=== PATIENT | male | born 1985 | race American Indian/Alaskan Native ===

== ENCOUNTER 2016-09-01 18:35 | Emergency (ER) | payer SELFPAY ==
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
[2016-09-02] MEDS ORDERED: NORCO 5/325 PO ONE (01:04)
[2016-09-02] MEDS ORDERED: FLEXERIL PO ONE (01:04)
[2016-09-02 01:37] VITALS: BP 135/87
== END 2016-09-02 01:35 | disposition home or self-care (01) ==
LOC: ED 18:35
DX: S30.0XXA Contusion of lower back and pelvis, initial encounter (principal); F17.200 Nicotine dependence, unspecified, uncomplicated; W17.89XA Other fall from one level to another, initial encounter; Y93.89 Activity, other specified; Y99.8 Other external cause status; Y92.89 Other specified places as the place of occurrence of the external cause
CPT/HCPCS: 99282

== ENCOUNTER 2017-01-21 19:24 | Emergency (ER) | payer OTHER ==
[2017-01-21] MEDS ORDERED: ALUM-MAG HYDROX-SIMETH 200-200-20MG/5ML PO ONE (20:40)
[2017-01-21] MEDS ORDERED: LIDOCAINE VISCOUS 2% PO ONE (20:40)
[2017-01-21 20:58] LABS: Bilirubin,Urine NEG (Negative); Blood,Urine NEG (Negative); Ketones,Urine TR mg/dL (Negative); Leukocyte Esterase,Urine NEG (Negative); Mucus,Urine FEW /HPF; Nitrite,Urine NEG (Negative); Protein,Urine <15 mg/dL mg/dL (Negative); Urobilinogen,Urine < 2.0 mg/dL (<2.0)
[2017-01-21 21:04] LABS: Basophils % (Auto) 0.7 % (0.0-1.8); Eosinophils % (Auto) 0.2 % (0.0-4.3); Hematocrit 46.8 % (35.5-45.6); Hemoglobin 16.2 gm/dl (11.8-15.2); Mean Corpuscular HGB Conc 35 % (32-34); Mean Corpuscular Hemoglobin 32 pg (28-32); Mean Corpuscular Volume 92 fl (84-94); Platelet Count 243 K/mm3 (140-440); Red Blood Count 5.07 M/mm3 (3.65-5.03); Red Cell Distribution Width 13.1 % (13.2-15.2); White Blood Count 13.8 K/mm3 (4.5-11.0)
[2017-01-21 21:24] LABS: Alanine Aminotransferase 26 units/L (7-56); Albumin 4.6 g/dL (3.9-5); Albumin/Globulin Ratio 1.6 %; Alkaline Phosphatase 104 units/L (35-129); Anion Gap 18 mmol/L; BUN/Creatinine Ratio 11; Blood Urea Nitrogen 8 mg/dL (9-20); Calcium 9.1 mg/dL (8.4-10.2); Carbon Dioxide 28 mmol/L (22-30); Chloride 92.1 mmol/L (98-107); Glucose 80 mg/dL (75-100); Lipase 17 units/L (13-60); Potassium 3.8 mmol/L (3.6-5.0); Sodium 134 mmol/L (137-145); Total Protein 7.4 g/dL (6.3-8.2)
[2017-01-21 21:37] LABS: Bilirubin,Direct < 0.2 mg/dL (0-0.2); Bilirubin,Indirect 0.2 mg/dL
--- NOTE | 2017-01-21 21:49 | Emergency Department Report ---
HPI - General Chief Complaint: Abdominal Pain Time Seen by Provider: 01/21/17 20:30 - HPI HPI: This is a 32-year-old male presents to the emergency department with a complaint of upper abdominal pain, nausea and vomiting that has been going on pretty consistently for the past month but has been an issue for him off and on over the past few years. He had 2 episodes of seeing some blood within the emesis. He has been taking some Zantac for his symptoms without any relief. He has a tobacco smoker. He has a history of some chronic back pain from an injury he had a year or so ago. He does not currently have a primary care physician. No recent travel or sick contacts at home. ED Past Medical Hx - Past Medical History Previous Medical History?: No Additional medical history: Back Injury April 2015 - Surgical History Additional Surgical History: tonsils removed. Left Arm/elbow - Social History Smoking Status: Current Every Day Smoker Substance Use Type: Alcohol - Medications Home Medications: Home Medications Medication Instructions Recorded Confirmed Last Taken Type Acetaminophen/Codeine [Tylenol 1 tab PO Q6H PRN #12 tab 09/02/16 Unknown Rx /Codeine # 3 tab] Cyclobenzaprine [Flexeril] 10 mg PO TID PRN #15 tablet 09/02/16 Unknown Rx Ibuprofen [Motrin] 600 mg PO Q8H PRN #15 tablet 09/02/16 Unknown Rx ED Review of Systems ROS: Stated complaint: STOMACH/CHEST PAIN Other details as noted in HPI Comment: All other systems reviewed and negative Constitutional: denies: chills, fever Eyes: denies: eye pain, eye discharge, vision change ENT: denies: ear pain, throat pain Respiratory: denies: cough, shortness of breath, wheezing Cardiovascular: denies: chest pain, palpitations Gastrointestinal: abdominal pain, nausea, vomiting Genitourinary: denies: urgency, dysuria Musculoskeletal: denies: back pain, joint swelling, arthralgia Physical Exam - Physical Exam Vital Signs: Vital Signs 01/21/17 01/21/17 19:27 20:46 Temperature 98.8 F Pulse Rate 86 Respiratory 18 18 Rate Blood Pressure 139/81 O2 Sat by Pulse 100 Oximetry Physical Exam: GENERAL: The patient is well-developed well-nourished. HENT: Normocephalic. Atraumatic. Patient has moist mucous membranes. EYES: Extraocular motions are intact. Pupils equal reactive to light bilaterally. NECK: Supple. Trachea is midline. CHEST/LUNGS: Clear to auscultation. There is no respiratory distress noted. HEART/CARDIOVASCULAR: Regular. There is no tachycardia. There is no murmur. ABDOMEN: Abdomen is soft. There is tenderness to palpation to the upper quadrants of the abdomen. No guarding or rebound tenderness. Patient has normal bowel sounds. There is no abdominal distention. SKIN: Skin is warm and dry. NEURO: The patient is awake, alert, and oriented. The patient is cooperative. The patient has no focal neurologic deficits. The patient has normal speech. MUSCULOSKELETAL: There is no tenderness or deformity. There is no limitation range of motion. There is no evidence of acute injury. ED Course Vital Signs 01/21/17 01/21/17 19:27 20:46 Temperature 98.8 F Pulse Rate 86 Respiratory 18 18 Rate Blood Pressure 139/81 O2 Sat by Pulse 100 Oximetry - Reevaluation(s) Reevaluation #1: I spoke with the patient about his labs and my plan for an ultrasound to look into cholelithiasis, cholecystitis and possibly pancreatitis. However the patient is wary of any imaging secondary to the suspected cost. He says he is feeling better after the GI cocktail and he feels it might be a ulcer of some sort. He understands that without any further imaging I'm not able to differentiate what is causing him his discomfort and there is a potential that there could be some underlying condition that could worsen or cause further problems for him. He understands and still does not want the imaging done and says that he will return with any worsening of his symptoms or any acute distress. We still discussed staying away from foods that are high in caffeine , spicy foods, alcohol, other foods that would increase acid reflux, and we discussed smoking cessation. 01/21/17 21:46 ED Medical Decision Making - Lab Data Result diagrams: 01/21/17 20:49 01/21/17 20:49 - Medical Decision Making The patient's labs are mostly unremarkable. There is a mild leukocytosis but it may be reactive to the patient's nausea and vomiting. He is not currently nauseated and has been no vomiting within the emergency department. Vital signs stable throughout ED course. I spoke with the patient about his labs and my plan for an ultrasound to look into cholelithiasis, cholecystitis and possibly pancreatitis. However the patient is wary of any imaging secondary to the suspected cost. He says he is feeling better after the GI cocktail and he feels it might be a ulcer of some sort. He understands that without any further imaging I'm not able to differentiate what is causing him his discomfort and there is a potential that there could be some underlying condition that could worsen or cause further problems for him. He understands and still does not want the imaging done and says that he will return with any worsening of his symptoms or any acute distress. We still discussed staying away from foods that are high in caffeine, spicy foods, alcohol, other foods that would increase acid reflux, and we discussed smoking cessation. He was given referrals for primary care and gastroenterology. - Differential Diagnosis cholelithiasis, cholecystitis, pancreatitis, gastritis, ulcer Critical Care Time: No Critical care attestation.: If time is entered above; I have spent that time in minutes in the direct care of this critically ill patient, excluding procedure time. ED Disposition Clinical Impression: Upper abdominal pain Nausea & vomiting Qualifiers: Vomiting type: unspecified Vomiting Intractability: non-intractable Qualified Code(s): R11.2 - Nausea with vomiting, unspecified Disposition: DC-01 TO HOME OR SELFCARE Is pt being admited?: No Condition: Stable Instructions: Acute Nausea and Vomiting (ED), Abdominal Pain (ED) Additional Instructions: Please follow up with a primary care physician in the next few days. I given you a referral for a local nut sorter, Dr. Self, to follow-up regarding or upper abdominal pain. Return to the emergency Department with any worsening of your symptoms, if you change your mind about further imaging, any intractable vomiting, or any acute distress. Continue with your Zantac and you may want to try a PPI such as Prilosec. Please quit smoking. Try and stay away from foods that are spicy, caffeinated products, alcohol or any other foods that might exacerbates acid reflux. Referrals: PRIMARY CARE, [Primary Care Provider] - 3-5 Days BLAINE SELF MD [Staff Physician] - 3-5 Days [facility] [Outside] - 3-5 Days Time of Disposition: 21:49
[2017-01-21 21:54] VITALS: BP 124/80
== END 2017-01-21 21:30 | disposition home or self-care (01) ==
LOC: ED 19:24
DX: R10.10 Upper abdominal pain, unspecified (principal); R11.2 Nausea with vomiting, unspecified; F17.200 Nicotine dependence, unspecified, uncomplicated; Z88.6 Allergy status to analgesic agent; Z90.89 Acquired absence of other organs
CPT/HCPCS: 36415; 80048; 80074; 81001; 83690; 85025; 93005; 93010; 99283

== ENCOUNTER 2019-01-05 18:39 | Emergency (ER) | payer SELFPAY | END 2019-01-05 18:59 | disposition left against medical advice (07) | LOC: ED 18:39 | DX: R22.2 Localized swelling, mass and lump, trunk (principal); Z53.21 Procedure and treatment not carried out due to patient leaving prior to being seen by health care provider ==